=== PATIENT | female | born 1950 | race Caucasian/White ===

== ENCOUNTER → 2023-11-27 08:16 | Outpatient (REF) | payer OTHER, SELFPAY | LOC: WDC 08:16 | PROVIDERS: ATTENDING PHYSICIAN Obstetrics & Gynecology; FAMILY PHYSICIAN Family Medicine | DX: Z12.31 Encounter for screening mammogram for malignant neoplasm of breast (principal) | CPT/HCPCS: 77063; 77067 ==

== ENCOUNTER 2025-01-19 13:51 | Emergency (ER) | payer OTHER, SELFPAY ==
[2025-01-19 13:56] VITALS: BP 138/69
--- NOTE | 2025-01-19 16:49 | ED.MUSCINJ ---
HPI-Injury
General
Chief Complaint: Musculo-Skeletal Complaint
Source: patient
Exam Limitations: none
Time Seen by Provider: 01/19/25 16:33
History of Present Illness-Injury
Initial Injury comments:
74-year-old female presents for evaluation of right knee pain that started 4 days ago. She fell and twisted her right knee attempting to sit on the toilet. She states it was very swollen initially. The swelling has since gone down. She now notes
pain mainly along the lateral aspect of the knee that radiates down the ivan. She is barely able to bear weight. No other complaints at this time
Past History
Past History
ED Past Medical History: Arrthythmia (A fib) and HTN
ED Past Surgical History: Cholecystectomy, and Other (Hernia repair)
Social History
Tobacco: Non-smoker
Alcohol: None
Drug: None
Personal:
Living: with family
Family History
Family History: Other
Phy Exam
Physical Exam
Physical Exam:
General: Well-appearing female no acute respiratory distress
HEENT: Normocephalic atraumatic
Musculoskeletal exam: Right knee without effusion. She is tender over the lateral aspect of the knee. There is increased pain with a varus stress. There is a palpable click felt with varus stress that is oblique painful. She is slightly tender
over the mid lateral ivan. No deformities. She is able to straight leg raise. She has no increased pain with dorsiflexion or plantarflexion of the ankle
Injury Course
Orders/Labs/Results
Orders:
Orders
01/19/25 13:56
Knee, Right 4 or More Views [CR Knee- Right 4 Or More View*] Urgent
Comment:
Reason For Exam: pain
01/19/25 16:44
CR Leg Tibia/fibula Right 2 Vw Urgent
Comment:
Reason For Exam: pain
01/19/25 17:35
Knee Immobilizer Right-Treatme ONCE
MDM/Problems Addressed
Differential Diagnosis Includes:
Right knee pain after a fall. Consider fracture versus sprain versus underlying degenerative joint disease.
Initial x-rays of the right knee ordered through triage have personally reviewed and degenerative change but no fracture. Patient does have pain further down the ivan. Tib-fib x-rays were added
*Critical Care Note
Total Time (30-74mins, 75-104mins- exclusive of procedures): Not Applicable
Update Note
Update Note:
X-rays of the tib-fib are negative. Knee immobilizer applied for support. Advised to follow-up with orthopedics for possible ligament strain. Stable for discharge
ED Attending Note
-
Portions of this chart may have been created with voice recognition software.� Occasional wrong word or��sound alike� substitutions may have occurred due to the inherent limitations of voice recognition software.
Discharge Plan
Departure
Patient Disposition: Home (Routine Discharge)
Date of Disposition: 01/19/25
Time of Disposition: 17:40
Patient with high blood pressure during this ER visit?: No
Discharge Problem:
Knee sprain
Instructions: Knee Sprain (DC)
Prescriptions:
No Action
rivaroxaban [Xarelto] 20 MG tablet
20 mg PO QPM Qty: 30 3RF
ibuprofen [Advil Liqui-Gel] 200 MG capsule
600 mg PO Q4HPRN PRN (Reason: pain)
Neomycin/Polymyxin B Sulf/Hc Suspension
1 drp LEFT EAR Q6
sotalol 80 MG tablet
120 mg PO BID
lisinopril 5 MG tablet
15 mg PO DAILY
promethazine [Promethegan] 25 MG suppository
25 mg NM Q6HPRN PRN (Reason: nausea) Qty: 12 0RF
Referrals:
Vikram Cartwright MD [Active, Orthopedics]
Activity Restrictions/Additional Instructions:
Use brace for support. Use Tylenol or ibuprofen as needed for pain. Follow-up with your orthopedic doctor
Interventions
Interventions:
*Risk Screen - Suicide Last Done: 01/19/25 13:56
*General Assessment Last Done: 01/19/25 13:56
*Neglect/Abuse Screening Last Done: 01/19/25 13:56
*ED- Fall Risk Assessment Last Done: 01/19/25 13:56
*ED COVID-19 Vaccine History Last Done: 01/19/25 13:56
Discharge Date and Time
Print Language: ANDORRAN
== END 2025-01-19 18:13 | disposition home or self-care (01) ==
LOC: EMR 13:51
PROVIDERS: EMERGENCY PHYSICIAN Emergency Medicine; FAMILY PHYSICIAN Family Medicine
DX: S83.91XA Sprain of unspecified site of right knee, initial encounter (principal); W18.39XA Other fall on same level, initial encounter; I10 Essential (primary) hypertension; I48.91 Unspecified atrial fibrillation; Z90.49 Acquired absence of other specified parts of digestive tract
CPT/HCPCS: 99283; 73564; 73590